=== PATIENT | male | born 1995 | race Caucasian/White ===

== ENCOUNTER 2022-03-02 15:04 | Outpatient (RCR) | payer OTHER ==
[~2022-03-02 15:04] MED LIST: POLYMYXIN B/TRIMETH OS
== END 2022-03-04 | disposition home or self-care (01) ==
LOC: WSOH
DX: S60.221D Contusion of right hand, subsequent encounter (principal); Y99.0 Civilian activity done for income or pay; J45.909 Unspecified asthma, uncomplicated; Z90.49 Acquired absence of other specified parts of digestive tract